=== PATIENT | female | born 1980 | race Caucasian/White ===

== ENCOUNTER 2020-02-27 02:37 | Emergency (ER) | payer SELFPAY ==
[2020-02-27 02:39] VITALS: BP 137/84; PULSE 130; RESP 18; TEMP 36.5; O2SAT 98; BMI 30.7
--- NOTE | 2020-02-27 02:44 | ED_ITS ---
HPI - Chest Pain General: Chief Complaint: Abdominal Pain Stated Complaint: chest pain Time Seen by Provider: 02/27/20 02:42 History of Present Illness: HPI narrative: 39-year-old female with a history of episodes of pancreatitis present with abdominal pain in a bandlike fashion around her upper abdomen for the past 3 days or so. She has vomited several times. No diarrhea. She has developed chest pain this morning, with some associated shortness of breath. No fever. No blood in the vomitus. He says that her last episode of pancreatitis was 4 years or so ago. She has no history of heart disease MD complaint: chest pain Pertinent past history: other Onset (ago): day(s) (3) Timing of current episode: episodic Prior episodes: Yes Onset: during rest Pain location: substernal and epigastric Pain radiation: abdomen Severity: moderate Quality: aching Relieving factors: nothing Associated symptoms: Reports abdominal pain, dyspnea, nausea and vomiting; Deny diaphoresis, fever(s) or palpitations Review of Systems Const: Denies: fever(s) or diaphoresis Eyes: Denies: change in vision ENMT: Denies: swelling of lips/tongue, post nasal drip or sinus pain Card: Reports: chest pain; Denies: palpitations, irregular heart rhythm or edema Resp: Reports: dyspnea; Denies: productive cough, non-productive cough or wheezing GI: Reports: abdominal pain, nausea and vomiting : Denies: dysuria or hematuria Musc: Reports: back pain; Denies: neck pain Skin/Breast: Denies: rash, pruritus or erythema Neuro: Denies: headache(s), dizziness or vertigo Psych: Denies: anxiety PFSH ED PFSH: Social History Smoking and tobacco status: current every day smoker Female Reproductive History: Date of last menstrual period: 02/25/20 Physical Exam Const: GENERAL APPEARANCE: well developed ORIENTATION/CONSCIOUSNESS: Yes oriented to person, Yes oriented to place and Yes oriented to time HENMT: COMMON NORMALS: normocephalic, external ears normal and Normal external nose present HEAD & SCALP: normocephalic FACE & SINUS: normal facial exam NOSE: Normal external nose present and No nasal discharge present EXTERNAL EAR: Yes external ears normal MOUTH: tongue normal Eye: COMMON NORMALS: Equal, round and reactive pupils present, EOMs intact bilaterally and conjunctivae normal EYELID: eyelids normal CONJUNCTIVA: Yes conjunctivae normal PUPIL: Yes Equal, round and reactive pupils present Neck/C-Spine: GENERAL: No tracheal deviation Chest: COMMONS NORMALS: normal inspection of the chest CHEST: No tenderness Resp: COMMON NORMALS: clear to auscultation bilaterally EFFORT & INSPECTION: No tachypneic, No respiratory distress, No retractions, No uses accessory muscles and No tracheal deviation AUSCULTATION: clear to auscultation bilaterally, no rhonchi, no wheezes and lung sounds not diminished Cardio: COMMON NORMALS: regular rate and regular rhythm RATE: regular rate RHYTHM: regular rhythm HEART SOUNDS: no murmurs PERIPHERAL PULSES: radial pulses present GI: INSPECTION: No abdominal distension AUSCULTATION: No Hyperactive bowel sounds present and No Hypoactive bowel sounds present PALPATION: Yes Tenderness to palpation present (GI) Details: LUQ, Yes Guarding due to palpation present (GI) and No Rigid due to palpation PERCUSSION: no dullness to percussion and no tympanic to percussion Neuro: SENSORIUM/ORIENTATION: Yes oriented to person, Yes oriented to place and Yes oriented to time Psych: COMMON NORMALS: mental status grossly normal Skin: COMMON NORMALS: no rashes or lesions noted GENERAL SKIN EXAM: no rashes or lesions noted Course Vital Signs: Vital signs: Vital Signs Temperature 97.7 F 02/27/20 02:39 Pulse Rate 130 H 02/27/20 02:39 Respiratory Rate 22 H 02/27/20 03:01 Blood Pressure 137/84 02/27/20 02:39 Pulse Oximetry 96 02/27/20 03:01 MDM - Chest Pain MDM Narrative: Medical decision making narrative: EKG shows a sinus rhythm. Troponin is negative. Chest x-ray is negative. White blood cell count is 15.2. She is tender in the epigastrium. Lipase is normal however. CT shows a normal-appearing pancreas. Bile ducts are normal. She does have an area of inflammation/ulceration of the distal stomach. She will be treated with PPI, and nausea control. Liquid diet, scheduled antiemetic for 24 hours. She knows to return for worsening symptoms. Lab Data: Labs: Lab Results 02/27/20 02/27/20 02/27/20 Range/Units 02:41 02:41 02:41 WBC 15.2 H (4.0-10.0) 10^3/ uL RBC 5.12 (4.1-5.3) 10^6/u L Hgb 15.6 H (11.5-15.3) g/dL Hct 45.1 (37.0-47.0) % MCV 88.1 (81-99) fL MCH 30.5 (28.0-34.0) pg MCHC 34.6 (30.0-36.0) g/dL RDW 12.4 (12.1-15.1) % Plt Count 278 (130-400) 10^3/c mm MPV 10.5 H (7.4-10.4) fL Neut % (Auto) 76.0 % Lymph % (Auto) 17.8 % [place] % (Auto) 5.3 % Eos % (Auto) 0.3 % Baso % (Auto) 0.2 % Neut # (Auto) 11.5 H (1.8-7.7) 10^3/u L Lymph # (Auto) 2.7 (0.8-4.8) 10^3/u L [place] # (Auto) 0.8 (0.2-0.9) 10^3/u L Eos # (Auto) 0.0 (0.0-0.8) 10^3/u L Baso # (Auto) 0.0 (0.0-0.1) 10^3/u L Nucleated RBC % (a uto) 0 % Nucleated RBCs # 0.0 /100WBC PT 12.10 (10.5-13.3) SECO NDS INR 0.87 (0.8-1.2) APTT 25.8 (23.9-36.7) SECO NDS D-Dimer <= 0.27 (0-0.59) ug/mIFE U Sodium 139 (136-145) mmol/L Potassium 3.5 (3.5-5.1) mmol/L Chloride 98 (98-107) mmol/L Carbon Dioxide 26 (22-29) mmol/L Anion Gap 18.5 (5-19) BUN 16 (6-20) mg/dL Creatinine 0.8 (0.5-0.9) mg/dL GFR Calculation 80.7 L (90-130) mL/min Glucose 139 H (65-115) mg/dL Calculated Osmolal ity 287 (285-295) mOsm/k g Calcium 9.8 (8.5-10.5) mg/dL Total Bilirubin 0.3 (0.15-1.2) mg/dL AST 21 (0-32) U/L ALT 22 (0-33) U/L Alkaline Phosphata se 69 (35-105) IU/L Creatine Kinase 44 (26-192) U/L Troponin T Baselin e (0-10) ng/L Total Protein 7.2 (6.6-8.7) g/dL Albumin 4.8 (3.5-5.2) g/dL Globulin 2.4 (1.3-4.6) g/dL Lipase (13-60) U/L HCG, Qual (Negative) Urine Color (Yellow) Urine Appearance (CLEAR) Urine pH (5-7) Ur Specific Gravit y (1.005-1.030) Urine Protein (Negative) Urine Glucose (UA) (Normal) Urine Ketones (Negative) Urine Blood (Negative) Urine Nitrate (Negative) Urine Bilirubin (NEGATIVE) Urine Urobilinogen (Negative) mg/dL Ur Leukocyte Oliva ase (Negative) Urine RBC (0-2) /hpf Urine WBC (0-5) /hpf Ur Squamous Epith Cells (0-5) Urine Bacteria (NONE) Urine Mucus 02/27/20 02/27/20 02/27/20 Range/Units 02:41 02:41 02:41 WBC (4.0-10.0) 10^3/ uL RBC (4.1-5.3) 10^6/u L Hgb (11.5-15.3) g/dL Hct (37.0-47.0) % MCV (81-99) fL MCH (28.0-34.0) pg MCHC (30.0-36.0) g/dL RDW (12.1-15.1) % Plt Count (130-400) 10^3/c mm MPV (7.4-10.4) fL Neut % (Auto) % Lymph % (Auto) % [place] % (Auto) % Eos % (Auto) % Baso % (Auto) % Neut # (Auto) (1.8-7.7) 10^3/u L Lymph # (Auto) (0.8-4.8) 10^3/u L [place] # (Auto) (0.2-0.9) 10^3/u L Eos # (Auto) (0.0-0.8) 10^3/u L Baso # (Auto) (0.0-0.1) 10^3/u L Nucleated RBC % (a uto) % Nucleated RBCs # /100WBC PT (10.5-13.3) SECO NDS INR (0.8-1.2) APTT (23.9-36.7) SECO NDS D-Dimer (0-0.59) ug/mIFE U Sodium (136-145) mmol/L Potassium (3.5-5.1) mmol/L Chloride (98-107) mmol/L Carbon Dioxide (22-29) mmol/L Anion Gap (5-19) BUN (6-20) mg/dL Creatinine (0.5-0.9) mg/dL GFR Calculation (90-130) mL/min Glucose (65-115) mg/dL Calculated Osmolal ity (285-295) mOsm/k g Calcium (8.5-10.5) mg/dL Total Bilirubin (0.15-1.2) mg/dL AST (0-32) U/L ALT (0-33) U/L Alkaline Phosphata se (35-105) IU/L Creatine Kinase (26-192) U/L Troponin T Baselin e 7 (0-10) ng/L Total Protein (6.6-8.7) g/dL Albumin (3.5-5.2) g/dL Globulin (1.3-4.6) g/dL Lipase 40 (13-60) U/L HCG, Qual Negative (Negative) Urine Color (Yellow) Urine Appearance (CLEAR) Urine pH (5-7) Ur Specific Gravit y (1.005-1.030) Urine Protein (Negative) Urine Glucose (UA) (Normal) Urine Ketones (Negative) Urine Blood (Negative) Urine Nitrate (Negative) Urine Bilirubin (NEGATIVE) Urine Urobilinogen (Negative) mg/dL Ur Leukocyte Oliva ase (Negative) Urine RBC (0-2) /hpf Urine WBC (0-5) /hpf Ur Squamous Epith Cells (0-5) Urine Bacteria (NONE) Urine Mucus 02/27/20 Range/Units 03:24 WBC (4.0-10.0) 10^3/ uL RBC (4.1-5.3) 10^6/u L Hgb (11.5-15.3) g/dL Hct (37.0-47.0) % MCV (81-99) fL MCH (28.0-34.0) pg MCHC (30.0-36.0) g/dL RDW (12.1-15.1) % Plt Count (130-400) 10^3/c mm MPV (7.4-10.4) fL Neut % (Auto) % Lymph % (Auto) % [place] % (Auto) % Eos % (Auto) % Baso % (Auto) % Neut # (Auto) (1.8-7.7) 10^3/u L Lymph # (Auto) (0.8-4.8) 10^3/u L [place] # (Auto) (0.2-0.9) 10^3/u L Eos # (Auto) (0.0-0.8) 10^3/u L Baso # (Auto) (0.0-0.1) 10^3/u L Nucleated RBC % (a uto) % Nucleated RBCs # /100WBC PT (10.5-13.3) SECO NDS INR (0.8-1.2) APTT (23.9-36.7) SECO NDS D-Dimer (0-0.59) ug/mIFE U Sodium (136-145) mmol/L Potassium (3.5-5.1) mmol/L Chloride (98-107) mmol/L Carbon Dioxide (22-29) mmol/L Anion Gap (5-19) BUN (6-20) mg/dL Creatinine (0.5-0.9) mg/dL GFR Calculation (90-130) mL/min Glucose (65-115) mg/dL Calculated Osmolal ity (285-295) mOsm/k g Calcium (8.5-10.5) mg/dL Total Bilirubin (0.15-1.2) mg/dL AST (0-32) U/L ALT (0-33) U/L Alkaline Phosphata se (35-105) IU/L Creatine Kinase (26-192) U/L Troponin T Baselin e (0-10) ng/L Total Protein (6.6-8.7) g/dL Albumin (3.5-5.2) g/dL Globulin (1.3-4.6) g/dL Lipase (13-60) U/L HCG, Qual (Negative) Urine Color Yellow (Yellow) Urine Appearance Clear (CLEAR) Urine pH 5 (5-7) Ur Specific Gravit y 1.025 (1.005-1.030) Urine Protein Neg (Negative) Urine Glucose (UA) Norm (Normal) Urine Ketones Negative (Negative) Urine Blood Trace H (Negative) Urine Nitrate Negative (Negative) Urine Bilirubin Neg (NEGATIVE) Urine Urobilinogen Norm (Negative) mg/dL Ur Leukocyte Oliva ase Negative (Negative) Urine RBC 0-4 H (0-2) /hpf Urine WBC 0-4 H (0-5) /hpf Ur Squamous Epith Cells 0-4 H (0-5) Urine Bacteria 1+ H (NONE) Urine Mucus 1+ Discharge Plan Discharge Patient Disposition: Home, Self-Care Clinical Impression: Gastritis Qualifiers: Gastritis type: unspecified gastritis Chronicity: acute Gastritis bleeding: without bleeding Qualified Code(s): K29.00 - Acute gastritis without bleeding Condition: Stable Prescriptions: [place] 5-325 mg tablet 1 tab PO Q6H PRN (Reason: pain) Qty: 10 RF: 0 Zofran 4 mg tablet 4 mg PO Q6H PRN (Reason: nausea and vomiting) Qty: 10 RF: 0 Prevacid 30 mg capsule,delayed release(DR/EC) 30 mg PO DAILY 28 Days Qty: 28 RF: 0 Discharge Orders: Discharge Order (Routine); Ordered 02/27/20 Ordered By: Alek Lomeli Discharge Diet: Advance as tolerated and Clear Liquid Discharge Activity: Increase activity as tolerated Patient Instructions: Gastritis (ED) Activity Restrictions/Additional Instructions: Return for fever greater than 100, worsening pain despite treatment, vomiting liquids or medications despite treatment, other concerning symptoms Coding Level of Care Code ED Inspector Firearms for Fabiana Fwd Exam Comprehensive
[2020-02-27 02:50] LABS: Basophils % 0.2 %; Eosinophils % 0.3 %; Hematocrit 45.1 % (37.0-47.0); Hemoglobin 15.6 g/dL (11.5-15.3); Lymphocytes # 2.7 10^3/uL (0.8-4.8); Lymphocytes % 17.8 %; Mean Corpuscular HGB Conc 34.6 g/dL (30.0-36.0); Mean Corpuscular Hemoglobin 30.5 pg (28.0-34.0); Mean Corpuscular Volume 88.1 fL (81-99); Mean Platelet Volume 10.5 fL (7.4-10.4); Monocytes # 0.8 10^3/uL (0.2-0.9); Monocytes % 5.3 %; Neutrophils # 11.5 10^3/uL (1.8-7.7); Nucleated Red Blood Cells % 0 %; Platelet Count 278 10^3/cmm (130-400); Red Blood Count 5.12 10^6/uL (4.1-5.3); Red Cell Distribution Width 12.4 % (12.1-15.1); White Blood Count 15.2 10^3/uL (4.0-10.0)
[2020-02-27] MEDS: sodium chloride 0.9% 1,000 ML 999 ML IV (02:50)
[2020-02-27] MEDS: ondansetron 2 mg/ML SDV 2 mL 4 MG IVP (02:52)
[2020-02-27 02:55] LABS: INR 0.87 (0.8-1.2); Partial Thromboplastin Time 25.8 SECONDS (23.9-36.7)
[2020-02-27 02:59] LABS: D Dimer <= 0.27 ug/mIFEU (0-0.59)
[2020-02-27 03:01] VITALS: RESP 22; O2SAT 96
[2020-02-27] MEDS: morphine 4 mg/mL SDV 1 mL IVP (03:01)
[2020-02-27 03:03] LABS: Alanine Aminotransferase 22 U/L (0-33); Albumin Level 4.8 g/dL (3.5-5.2); Alkaline Phosphatase 69 IU/L (35-105); Anion Gap 18.5 (5-19); Aspartate Amino Transferase 21 U/L (0-32); Blood Urea Nitrogen 16 mg/dL (6-20); Calcium 9.8 mg/dL (8.5-10.5); Carbon Dioxide 26 mmol/L (22-29); Chloride 98 mmol/L (98-107); Creatine Phosphokinase 44 U/L (26-192); Globulin 2.4 g/dL (1.3-4.6); Glomerular Filtration Rate 80.7 mL/min (90-130); Glucose 139 mg/dL (65-115); HCG, Serum Qual Negative (Negative); Osmolality Calculated 287 mOsm/kg (285-295); Potassium 3.5 mmol/L (3.5-5.1); Sodium 139 mmol/L (136-145); Total Bilirubin 0.3 mg/dL (0.15-1.2); Total Protein 7.2 g/dL (6.6-8.7)
[2020-02-27 03:04] LABS: Troponin(5th) Baseline 7 ng/L (0-10)
[2020-02-27 03:11] LABS: Lipase 40 U/L (13-60)
--- NOTE | 2020-02-27 03:14 | CTR_ITS ---
PROCEDURE INFORMATION: Exam: CT Abdomen And Pelvis With Contrast Exam date and time: 02/27/2020 3:24 AM Age: 39 years old Clinical indication: Nausea and vomiting; Abdominal pain; Generalized; Prior surgery; Surgery type: Gb; Additional info: Abd pain TECHNIQUE: Imaging protocol: Computed tomography of the abdomen and pelvis with intravenous contrast. Radiation optimization: All CT scans at this facility use at least one of these dose optimization techniques: automated exposure control; mA and/or kV adjustment per patient size (includes targeted exams where dose is matched to clinical indication); or iterative reconstruction. Contrast material: OMNI 300; Contrast volume: 95 ml; Contrast route: IV; COMPARISON: No relevant prior studies available. RADIATION DOSE METRICS: Total DLP: 902.54 mGy-cm FINDINGS: Lungs: The lung bases are clear. Liver: Unremarkable. Gallbladder and bile ducts: Prior cholecystectomy, no significant biliary tree dilation. Pancreas: Unremarkable. Spleen: Unremarkable. Adrenals: Unremarkable. Kidneys and ureters: Unremarkable. Stomach and bowel: Possibility of slightly thickened mucosa/wall in the distal antrum of the stomach. This is a nonspecific appearance, and could be transient on CT, but could also represent evidence for gastritis or peptic ulcer disease. Please correlate clinically. A few proximal small bowel loops are fluid filled and borderline prominent in size, but the overall appearance is not suggestive of significant small bowel obstruction at this time. This appearance could be secondary to some form of gastroenteritis. Please correlate clinically. There are no CT findings to strongly suggest diverticulitis. Appendix: The appendix is visualized and appears normal. Intraperitoneal space: No free air, ascites, or significant bowel distention. Vasculature: No evidence for abdominal aortic aneurysm. Lymph nodes: No retroperitoneal adenopathy. Bladder: The urinary bladder appears essentially unremarkable by CT, although evaluation is limited as the bladder is essentially empty. Reproductive: Both ovaries contain a 15-17 mm dominant follicle versus very small cyst. Significance uncertain/unlikely due to small size. No cul-de-sac fluid. Bones/joints: Moderate bulging disc at L4-L5. Soft tissues: No significant acute finding. CT/CT abdomen pelvis w con* [id number] IMPRESSION: 1. Normal appendix. 2. No free air or significant bowel distention. No evidence for bowel obstruction. 3. Possible thickened mucosa/wall in the distal stomach, see above discussion. 4. A few proximal small bowel loops are fluid filled and borderline prominent in size, see above discussion. This appearance could be secondary to some form of gastroenteritis. 5. Both ovaries contain a 15-17 mm dominant follicle versus very small cyst. Significance uncertain/unlikely due to small size. No cul-de-sac fluid. 6. Other findings discussed above. Radiation Dose CTDIVOL = (mGy): DLP = 902.54 (mGy-cm)
--- NOTE | 2020-02-27 03:16 | PC.NURSE ---
Pt states nausea has been resolved, pain 5/[address] notified
--- NOTE | 2020-02-27 03:19 | XR_ITS ---
WS: [id number] XR chest 1V portable [id number] REASON FOR EXAM: cp FINDINGS: The heart and mediastinal interfaces were normal. The lung dan are well aerated. No pneumonia, pleural effusion, pulmonary edema, are pneumothorax. The hilum and apices are normal. No osseous abnormalities. XR/XR chest 1V portable [id number] IMPRESSION: Negative chest for acute pathology.
[2020-02-27] MEDS: iohexol 300 mg/mL 100 mL Btl IV (03:25)
[2020-02-27 03:58] LABS: Add Urine Microscopic? YES; Bilirubin Urine Neg (NEGATIVE); Blood Urine Trace (Negative); Glucose Urine UA Norm (Normal); Ketones Urine Negative (Negative); Leukocyte Esterase Urine Negative (Negative); Nitrate Urine Negative (Negative); Protein Urine Neg (Negative); Specific Gravity, Urine 1.025 (1.005-1.030); Urine Appearance Clear (CLEAR); Urine Color Yellow (Yellow); Urobilinogen Urine Norm (Negative); pH Urine 5 (5-7)
[2020-02-27 04:00] LABS: Bacteria Urine 1+; Mucus Urine 1+; RBC Urine 0-4 /hpf (0-2); Squamous Epithelial Cell Urine 0-4 (0-5); WBC Urine 0-4 /hpf (0-5)
[2020-02-27 04:01] LABS: Add Urine Culture? No
[2020-02-27] MEDS: pantoprazole 40 mg SDV IVP (04:41)
[2020-02-27] MEDS: lidocaine 2% viscous 15 ML, aluminum-mag hydrox-simethicon 30 ML, sucralfate oral liq 1 GM PO (04:41)
--- NOTE | 2020-02-27 05:09 | PC.NURSE ---
i agree with this assessment
[2020-02-27 05:24] VITALS: BP 176/94; PULSE 84; RESP 18; O2SAT 100
[2020-02-27 05:30] LABS: Troponin 5 2HR 6.17 ng/L (0-10)
[2020-02-27 05:34] LABS: Troponin 5 2HR Delta -0.83 ABS# (0-10)
== END 2020-02-27 05:31 | disposition home or self-care (01) ==
PROVIDERS: Emergency Provider Emergency Medicine
DX: K29.00 Acute gastritis without bleeding (principal); F17.210 Nicotine dependence, cigarettes, uncomplicated
CPT/HCPCS: 12345; 71045; 74177; 80053; 81001; 82550; 83690; 84484; 84703; 85025; 85378; 85610; 85730; 96360; 96361; 96374; 96375; 99283; 99284; C9113; J2270; J2405; J7030; Q9967

== ENCOUNTER 2020-02-28 19:24 | Emergency (ER) | payer SELFPAY ==
[2020-02-28 19:26] VITALS: BP 181/113; PULSE 79; RESP 20; TEMP 36.6; O2SAT 96; BMI 30.7
--- NOTE | 2020-02-28 19:43 | ED_ITS ---
HPI - Abdominal Pain General: Chief Complaint: Abdominal Pain Stated Complaint: abd pain Time Seen by Provider: 02/28/20 19:30 Source: patient and old records reviewed Mode of arrival: ambulatory Limitations: no limitations History of Present Illness: HPI narrative: Kalyani is a nice 39-year-old female who comes in complaining of upper abdominal pain. She states this feels like her pancreatitis that she has had in the past. She is unaware of what caused her pancreatitis in the past and she has had a cholecystectomy. She denies drinking alcohol recurrently or to excess. She continues to vomit but denies any hemta-emesis or coffee-ground emesis. She states she is primarily vomiting up bile. She denies any diarrhea or constipation, she denies any urinary type symptoms, she has any fevers or chills, vaginal discharge or bleeding. Patient states that he was seen here a few days ago she is no better since then. The patient denies any lower abdominal pain. Associated Symptoms: Reports nausea and vomiting; Denies chills, coffee ground emesis, constipation, GI cramping, diarrhea, dysuria, fever(s), heartburn, hematochezia, hematuria, hematemesis, melena and syncope Related Data: Date of Last Menstrual Period: 02/26/20 Review of Systems Const: Denies: fever(s), chills, body aches, fatigue, malaise or diaphoresis Eyes: Denies: change in vision, blurry vision, blind spots or photophobia ENMT: Denies: throat pain, odynophagia, hoarseness, swelling of lips/tongue, ear or mastoid pain, ear discharge, change in hearing or nasal discharge Card: Denies: chest pain, palpitations, irregular heart rhythm, edema, lightheadedness, syncope, pre-syncope, dyspnea on exertion or orthopnea Resp: Denies: dyspnea, productive cough, non-productive cough, wheezing, hemoptysis or chest congestion GI: Reports: abdominal pain, nausea and vomiting; Denies: hematemesis, coffee ground emesis, heartburn, diarrhea, constipation, GI cramping, hematochezia or melena : Denies: flank pain, dysuria, urinary frequency, urinary urgency or hematuria Musc: Denies: neck pain, back pain, extremity pain, extremity swelling, joint pain, joint swelling, joint redness, joint warmth or joint stiffness Skin/Breast: Denies: rash, pruritus, erythema, skin tenderness or jaundice Neuro: Denies: headache(s), numbness in extremities, weakness in extremities, sensory changes, lack of coordination, difficulty walking, dizziness, vertigo, confusion or Slurred speech present Devin/Lymph: Denies: easy bruising, easy bleeding, petechiae, purpura or enlarged lymph nodes All/Imm: Denies: urticaria, throat swelling, tongue swelling, facial swelling or acute wheezing PFSH ED PFSH: Medical History Gastritis Pancreatitis Surgical History Previous section S/P cholecystectomy Social History Smoking and tobacco status: current every day smoker Female Reproductive History: Date of last menstrual period: 02/26/20 Physical Exam Const: COMMON NORMALS: no acute distress, patient oriented x3, no limitations, healthy appearing and well nourished GENERAL APPEARANCE: cooperative, well kempt and well developed HENMT: COMMON NORMALS: normocephalic, atraumatic, external ears normal, EAC's normal and Normal external nose present HEAD & SCALP: normal to inspection, normocephalic and atraumatic FACE & SINUS: normal facial exam and face symmetric NOSE: Normal external nose present and Normal nares present EXTERNAL EAR: Yes external ears normal EXTERNAL AUDITORY CANAL: EAC's normal MOUTH: Normal oral and palatal mucosa present, lip normal and tongue normal Eye: COMMON NORMALS: Equal, round and reactive pupils present and conjunctivae normal GENERAL EYE: appearance normal, both eyes and all related structures ALIGNMENT: Yes alignment normal PERIORBITAL: periorbital findings normal EYELID: eyelids normal CONJUNCTIVA: Yes conjunctivae normal SCLERA: sclerae normal PUPIL: Yes Equal, round and reactive pupils present Neck/C-Spine: COMMON NORMALS: full ROM, no lymphadenopathy, supple, no meningeal signs and no JVD GENERAL: Yes normal visual inspection and Yes trachea midline Chest: COMMONS NORMALS: normal inspection of the chest and normal palpation of entire chest wall Resp: COMMON NORMALS: normal respiratory effort, No retractions and No use of accessory muscles EFFORT & INSPECTION: Yes able to speak in complete sentences and Yes symmetric chest movement AUSCULTATION: no crackles, no rales, no rhonchi and no wheezes Cardio: COMMON NORMALS: no JVD, regular rate, regular rhythm, S1 normal heart sound present and S2 normal heart sound present RATE: regular rate RHYTHM: regular rhythm HEART SOUNDS: S1 normal heart sound present, S2 normal heart sound present, no click, no gallops, no murmurs, no rubs and abnormal split S2 GI: COMMON NORMALS: Soft to palpation and No hepatosplenomegaly present PALPATION: Yes Soft to palpation, Yes Tenderness to palpation present (GI) (Mild in the upper abdomen without rebound or guarding.), No Guarding due to palpation present (GI), No Rigid due to palpation, Yes No hepatosplenomegaly present, No Hernia present, No Palpable mass present and No Pulsatile mass present : COMMON NORMALS: Yes no CVA tenderness BLADDER/KIDNEY EXAM: Yes no CVA tenderness EXTERNAL FEMALE EXAM: No Hernia present Back/Pelvis: COMMON NORMALS: no CVA tenderness, thoracic and lumbar spine normal to inspection, no thoracic nor lumbar tenderness and thoraco-lumbar ROM normal Extremity: COMMON NORMALS: normal to inspection, full ROM, capillary refill normal, no joint enlargement, no clubbing, cyanosis or edema and no calf tenderness Neuro: COMMON NORMALS: patient oriented x3, CN's II-XII intact bilaterally, moves all extremities, no focal motor deficits and no sensory deficits noted MENINGEAL SIGNS: Yes no meningeal signs SPEECH: speech normal Psych: COMMON NORMALS: mental status grossly normal, Normal thought process present, cooperative, normal affect, speech normal and activity/motor behavior normal APPEARANCE: Yes well kempt SPEECH: Yes normal speech THOUGHT PROCESS: Normal thought process present Skin: COMMON NORMALS: no rashes or lesions noted, turgor normal, no jaundice, no petechiae and no mottling GENERAL SKIN EXAM: no rashes or lesions noted and turgor normal Course Vital Signs: Vital signs: Vital Signs Temperature 97.8 F 02/28/20 19:26 Pulse Rate 75 02/28/20 21:29 Respiratory Rate 14 02/28/20 21:29 Blood Pressure 121/77 02/28/20 21:29 Pulse Oximetry 99 02/28/20 21:29 MDM - Abdominal Pain MDM Narrative: Medical decision making narrative: The patient is feeling much better after pain medication and a GI cocktail. I have recommended to have a CT scan done to better assess for anything else that could be causing her pain specifically appendicitis, small bowel obstruction, or any other type of inflammatory or infectious bowel etiology. The patient understands what I recommended but she is refusing this test. She states she is feeling much better and would like to go home. She claims she is not on anything for acid in her stomach although Dr. Lomeli did prescribe Prevacid at her last discharge but she states she is not taking that. I will place her on Protonix as I believe it works somewhat better as she states that she will use this but she is still refusing a CT scan of the abdomen pelvis. She understands that a bowel obstruction or missed appendicitis can lead to worsening problems including surgeries, need for ileostomy, colostomy or even an the worse case scenario . She declines having this test done and she is adamant she wants to go home. This time the patient is drinking water and is laughing and joking and playing on her cell phone. I will not make her sign out AGAINST MEDICAL ADVICE but she does understand that she is leaving against my advice as I have her acute further studies. I do trust that she will return if she worsens at all. The patient has been warned but she is also been welcomed to return. Differential Diagnosis: Differential diagnosis abdominal pain: Likely abdominal pain, acute appendicitis, calculus of kidney, constipation, diverticulitis, endometriosis, gastroenteritis, pancreatitis and small bowel obstruction Medical Records: Attestation: I reviewed the patient's medical records. Medical records narrative: Previous ER visit reviewed. Lab Data: Attestation: I reviewed the patient's lab results. Labs: Lab Results 02/28/20 02/28/20 02/28/20 Range/Units 19:45 19:45 19:45 WBC 12.1 H (4.0-10.0) 10^3/ uL RBC 4.52 (4.1-5.3) 10^6/u L Hgb 13.7 (11.5-15.3) g/dL Hct 39.3 (37.0-47.0) % MCV 86.9 (81-99) fL MCH 30.3 (28.0-34.0) pg MCHC 34.9 (30.0-36.0) g/dL RDW 12.2 (12.1-15.1) % Plt Count 246 (130-400) 10^3/c mm MPV 10.4 (7.4-10.4) fL Neut % (Auto) 77.9 % Lymph % (Auto) 16.5 % [place] % (Auto) 4.9 % Eos % (Auto) 0.2 % Baso % (Auto) 0.2 % Neut # (Auto) 9.4 H (1.8-7.7) 10^3/u L Lymph # (Auto) 2.0 (0.8-4.8) 10^3/u L [place] # (Auto) 0.6 (0.2-0.9) 10^3/u L Eos # (Auto) 0.0 (0.0-0.8) 10^3/u L Baso # (Auto) 0.0 (0.0-0.1) 10^3/u L Nucleated RBC % (a uto) 0 % Nucleated RBCs # 0.0 /100WBC Sodium 139 (136-145) mmol/L Potassium 3.8 (3.5-5.1) mmol/L Chloride 101 (98-107) mmol/L Carbon Dioxide 26 (22-29) mmol/L Anion Gap 15.8 (5-19) BUN 10 (6-20) mg/dL Creatinine 0.6 (0.5-0.9) mg/dL GFR Calculation 112.5 (90-130) mL/min Glucose 110 (65-115) mg/dL Calculated Osmolal ity 285 (285-295) mOsm/k g Calcium 9.1 (8.5-10.5) mg/dL Total Bilirubin 0.3 (0.15-1.2) mg/dL AST 18 (0-32) U/L ALT 18 (0-33) U/L Alkaline Phosphata se 57 (35-105) IU/L Total Protein 6.6 (6.6-8.7) g/dL Albumin 4.3 (3.5-5.2) g/dL Globulin 2.3 (1.3-4.6) g/dL Triglycerides 96 (0-150) mg/dL Cholesterol 134 (0-200) mg/dL LDL Cholesterol, C alc 67 (50-129) mg/dL HDL Cholesterol 48 L (60-100) mg/dL LDL/HDL Ratio 1.40 (0.00-3.22) RATI O Cholesterol/HDL Ra tai 2.79 (0.0-4.40) mg/dL Lipase 85 H (13-60) U/L HCG, Qual Negative (Negative) Urine Color (Yellow) Urine Appearance (CLEAR) Urine pH (5-7) Ur Specific Gravit y (1.005-1.030) Urine Protein (Negative) Urine Glucose (UA) (Normal) Urine Ketones (Negative) Urine Blood (Negative) Urine Nitrate (Negative) Urine Bilirubin (NEGATIVE) Urine Urobilinogen (Negative) mg/dL Ur Leukocyte Oliva ase (Negative) Urine RBC (0-2) /hpf Urine WBC (0-5) /hpf Ur Squamous Epith Cells (0-5) Amorphous Sediment Urine Bacteria (NONE) Urine Mucus H. pylori IgG Anti body (Negative) 02/28/20 02/28/20 Range/Units 19:45 19:45 WBC (4.0-10.0) 10^3/ uL RBC (4.1-5.3) 10^6/u L Hgb (11.5-15.3) g/dL Hct (37.0-47.0) % MCV (81-99) fL MCH (28.0-34.0) pg MCHC (30.0-36.0) g/dL RDW (12.1-15.1) % Plt Count (130-400) 10^3/c mm MPV (7.4-10.4) fL Neut % (Auto) % Lymph % (Auto) % [place] % (Auto) % Eos % (Auto) % Baso % (Auto) % Neut # (Auto) (1.8-7.7) 10^3/u L Lymph # (Auto) (0.8-4.8) 10^3/u L [place] # (Auto) (0.2-0.9) 10^3/u L Eos # (Auto) (0.0-0.8) 10^3/u L Baso # (Auto) (0.0-0.1) 10^3/u L Nucleated RBC % (a uto) % Nucleated RBCs # /100WBC Sodium (136-145) mmol/L Potassium (3.5-5.1) mmol/L Chloride (98-107) mmol/L Carbon Dioxide (22-29) mmol/L Anion Gap (5-19) BUN (6-20) mg/dL Creatinine (0.5-0.9) mg/dL GFR Calculation (90-130) mL/min Glucose (65-115) mg/dL Calculated Osmolal ity (285-295) mOsm/k g Calcium (8.5-10.5) mg/dL Total Bilirubin (0.15-1.2) mg/dL AST (0-32) U/L ALT (0-33) U/L Alkaline Phosphata se (35-105) IU/L Total Protein (6.6-8.7) g/dL Albumin (3.5-5.2) g/dL Globulin (1.3-4.6) g/dL Triglycerides (0-150) mg/dL Cholesterol (0-200) mg/dL LDL Cholesterol, C alc (50-129) mg/dL HDL Cholesterol (60-100) mg/dL LDL/HDL Ratio (0.00-3.22) RATI O Cholesterol/HDL Ra tai (0.0-4.40) mg/dL Lipase (13-60) U/L HCG, Qual (Negative) Urine Color Straw (Yellow) Urine Appearance Cloudy (CLEAR) Urine pH 7 (5-7) Ur Specific Gravit y 1.010 (1.005-1.030) Urine Protein Neg (Negative) Urine Glucose (UA) Norm (Normal) Urine Ketones Negative (Negative) Urine Blood Neg (Negative) Urine Nitrate Negative (Negative) Urine Bilirubin Neg (NEGATIVE) Urine Urobilinogen Norm (Negative) mg/dL Ur Leukocyte Oliva ase Negative (Negative) Urine RBC 0-4 H (0-2) /hpf Urine WBC None (0-5) /hpf Ur Squamous Epith Cells 5-10 H (0-5) Amorphous Sediment 4+ Urine Bacteria 1+ H (NONE) Urine Mucus 1+ H. pylori IgG Anti body Negative (Negative) Discharge Plan Discharge Patient Disposition: Home, Self-Care Clinical Impression: Abdominal pain Qualifiers: Abdominal location: epigastric Qualified Code(s): R10.13 - Epigastric pain Condition: Stable Prescriptions: New Protonix 40 mg tablet,delayed release (DR/EC) 40 mg PO DAILY 28 Days RF: 0 No Action hydrocodone-acetaminophen [[place]] 5-325 mg tablet 1 tab PO Q6H PRN (Reason: pain) Qty: 10 RF: 0 ondansetron HCl [Zofran] 4 mg tablet 4 mg PO Q6H PRN (Reason: nausea and vomiting) Qty: 10 RF: 0 lansoprazole [Prevacid] 30 mg capsule,delayed release(DR/EC) 30 mg PO DAILY 28 Days Qty: 28 RF: 0 Discharge Orders: Discharge Order (Routine); Ordered 02/28/20 Ordered By: Ludmila Heart Referrals: Chris Mehta MD [Physician] - 1-3 days Discharge Diet: Advance as tolerated Discharge Activity: Increase activity as tolerated Patient Instructions: Abdominal Pain (ED) Activity Restrictions/Additional Instructions: Please return to the ER immediately for any of the signs or symptoms listed on your discharge instruction sheets, worsening/changing of your symptoms, you are not getting better as quickly as expected, or for ANY other cause or concerns. Take the Protonix that I have prescribed you and discard the Prevacid given to you by Dr. Lomeli. Do not take both of these medications together. If you develop chest pain, shortness of breath, fever, you continue to vomit, you develop blood in your stools or have any other concerns please return to the ER immediately for recheck. You have been offered further evaluation here to include a CT scan which you have declined because you have stated you are feeling better. Appendicitis and other serious even life-threatening causes of your pain could be present so if you change your mind, your symptoms worsen or you have any other problems please return to the ER immediately for recheck. Discharge Date/Time: 02/28/20 21:29 Coding Level of Care Code ED Binder Sorter for Fabiana Fwd Exam Comprehensive
[2020-02-28 19:58] LABS: HCG Qualitative Urine. Negative (Negative)
[2020-02-28 20:02] LABS: Basophils % 0.2 %; Eosinophils % 0.2 %; Hematocrit 39.3 % (37.0-47.0); Hemoglobin 13.7 g/dL (11.5-15.3); Lymphocytes % 16.5 %; Mean Corpuscular HGB Conc 34.9 g/dL (30.0-36.0); Mean Corpuscular Hemoglobin 30.3 pg (28.0-34.0); Mean Corpuscular Volume 86.9 fL (81-99); Mean Platelet Volume 10.4 fL (7.4-10.4); Monocytes # 0.6 10^3/uL (0.2-0.9); Monocytes % 4.9 %; Neutrophils # 9.4 10^3/uL (1.8-7.7); Neutrophils % 77.9 %; Nucleated Red Blood Cells % 0 %; Platelet Count 246 10^3/cmm (130-400); Red Blood Count 4.52 10^6/uL (4.1-5.3); Red Cell Distribution Width 12.2 % (12.1-15.1); White Blood Count 12.1 10^3/uL (4.0-10.0)
[2020-02-28 20:14] LABS: Alanine Aminotransferase 18 U/L (0-33); Albumin Level 4.3 g/dL (3.5-5.2); Alkaline Phosphatase 57 IU/L (35-105); Anion Gap 15.8 (5-19); Aspartate Amino Transferase 18 U/L (0-32); Blood Urea Nitrogen 10 mg/dL (6-20); Calcium 9.1 mg/dL (8.5-10.5); Carbon Dioxide 26 mmol/L (22-29); Chloride 101 mmol/L (98-107); Chol HDL Ratio 2.79 mg/dL (0.0-4.40); Cholesterol 134 mg/dL (0-200); Globulin 2.3 g/dL (1.3-4.6); Glomerular Filtration Rate 112.5 mL/min (90-130); Glucose 110 mg/dL (65-115); HDL Cholesterol 48 mg/dL (60-100); LDL Cholesterol Calculated 67 mg/dL (50-129); Lipase 85 U/L (13-60); Osmolality Calculated 285 mOsm/kg (285-295); Potassium 3.8 mmol/L (3.5-5.1); Sodium 139 mmol/L (136-145); Total Bilirubin 0.3 mg/dL (0.15-1.2); Total Protein 6.6 g/dL (6.6-8.7); Triglycerides 96 mg/dL (0-150)
[2020-02-28] MEDS: HYDROmorphone 1 mg/mL INJ 1 mL IVP (20:18)
[2020-02-28] MEDS: ondansetron 2 mg/ML SDV 2 mL 4 MG IVP (20:18)
[2020-02-28] MEDS: sodium chloride 0.9% 1,000 ML 999 ML IV (20:18)
[2020-02-28 20:27] LABS: H. Pylori IgG Antibody Negative (Negative)
[2020-02-28] MEDS: pantoprazole 40 mg SDV 80 MG IVP (20:28)
[2020-02-28] MEDS: lidocaine 2% viscous 15 ML, aluminum-mag hydrox-simethicon 30 ML, sucralfate oral liq 1 GM PO (20:57)
[2020-02-28 21:14] LABS: Add Urine Microscopic? YES; Bilirubin Urine Neg (NEGATIVE); Blood Urine Neg (Negative); Glucose Urine UA Norm (Normal); Ketones Urine Negative (Negative); Leukocyte Esterase Urine Negative (Negative); Nitrate Urine Negative (Negative); Protein Urine Neg (Negative); Urine Appearance Cloudy (CLEAR); Urine Color Straw (Yellow); Urobilinogen Urine Norm (Negative); pH Urine 7 (5-7)
[2020-02-28 21:19] LABS: Bacteria Urine 1+; RBC Urine 0-4 /hpf (0-2)
[2020-02-28 21:20] LABS: Add Urine Culture? No; Amorphous Sediment Urine 4+; Mucus Urine 1+
[2020-02-28 21:29] VITALS: BP 121/77; PULSE 75; RESP 14; O2SAT 99
== END 2020-02-28 21:29 | disposition home or self-care (01) ==
PROVIDERS: Emergency Medicine; Emergency Provider Emergency Medicine
DX: R10.13 Epigastric pain (principal); F17.210 Nicotine dependence, cigarettes, uncomplicated
CPT/HCPCS: 12345; 80053; 80061; 81001; 81025; 83690; 85025; 86677; 96361; 96374; 96375; 99282; 99283; C9113; J1170; J2405; J7030

== ENCOUNTER 2020-02-29 16:26 | Emergency (ER) | payer SELFPAY ==
[2020-02-29 16:33] VITALS: BP 185/104; PULSE 95; RESP 18; TEMP 37.1; O2SAT 98; BMI 30.7
--- NOTE | 2020-02-29 16:40 | CTR_ITS ---
PROCEDURE INFORMATION: Exam: CT Abdomen And Pelvis With Contrast Exam date and time: 02/29/2020 5:18 PM Age: 39 years old Clinical indication: Nausea and vomiting; Abdominal pain; Periumbilical; Prior surgery; Surgery type: Gb; Additional info: Abd pain TECHNIQUE: Imaging protocol: Computed tomography of the abdomen and pelvis with intravenous contrast. Radiation optimization: All CT scans at this facility use at least one of these dose optimization techniques: automated exposure control; mA and/or kV adjustment per patient size (includes targeted exams where dose is matched to clinical indication); or iterative reconstruction. Contrast material: OMNI 300; Contrast volume: 95 ml; Contrast route: INTRAVENOUS (IV); COMPARISON: CT abdomen pelvis w con* [id number] 02/27/2020 3:32 AM FINDINGS: Mediastinal space: Possible small 2.5 cm sliding hiatal hernia. Liver: Normal. No mass. Gallbladder and bile ducts: Prior cholecystectomy. Pancreas: Normal. No ductal dilation. Spleen: Normal. No splenomegaly. Adrenals: Normal. No mass. Kidneys and ureters: Normal. No hydronephrosis. Stomach and bowel: No obvious gastric wall thickening. Distal stomach/antrum is collapsed making evaluation difficult. Some of the small bowel loops display prominent mucosal folds which could indicate some sort of enteritis. Appendix: Normal small appendix. Intraperitoneal space: Unremarkable. No free air. No significant fluid collection. Vasculature: Unremarkable. No abdominal aortic aneurysm. Lymph nodes: Unremarkable. No enlarged lymph nodes. Bladder: Unremarkable as visualized. Reproductive: 1.9 cm right ovarian and 2 cm left ovarian dominant follicles or cysts, unchanged. Bones/joints: Unremarkable. No acute fracture. Soft tissues: Unremarkable. Other findings: The the Total DLP (mGy-cm): 842.13 CT/CT abdomen pelvis w con* [id number] IMPRESSION: 1.) Some of the small bowel loops display prominent mucosal folds which could indicate some sort of enteritis. 2.)1.9 cm right ovarian and 2 cm left ovarian dominant follicles or cysts, unchanged. 3.) Prior cholecystectomy. Radiation Dose CTDIVOL = (mGy): DLP = 842.13 (mGy-cm)
--- NOTE | 2020-02-29 16:43 | ED_ITS ---
HPI - Abdominal Pain General: Chief Complaint: Abdominal Pain Stated Complaint: UPPER QUAD ABD PAIN Time Seen by Provider: 02/29/20 16:35 Source: patient and EMS Mode of arrival: EMS Limitations: no limitations History of Present Illness: HPI narrative: 39-year-old female who states she has a history of chronic abdominal pain was seen here yesterday and the day before. Patient is CT 2 days ago was negative. She states her pain is worsened since then. She denies any vomiting. She has had her gallbladder out. MD elicited complaint: abdominal pain Onset (ago): day(s) Pain Consistency: intermittent Location: Epigastric Associated Symptoms: Denies chills, dysuria and fever(s) Related Data: Date of Last Menstrual Period: 02/26/20 Review of Systems Const: Denies: fever(s), chills, body aches or change in appetite Eyes: Denies: blurry vision or eye discomfort ENMT: Denies: throat pain or dental pain Card: Denies: chest pain Resp: Denies: dyspnea GI: Reports: abdominal pain : Denies: dysuria Musc: Denies: neck pain or back pain Skin/Breast: Denies: rash Neuro: Denies: headache(s) Psych: Denies: depression Devin/Lymph: Denies: easy bruising All/Imm: Denies: urticaria PFSH ED PFSH: Medical History (Updated 02/29/20 @ 18:17 by Dionisio Mock MD) Gastritis Pancreatitis Surgical History Previous section S/P cholecystectomy Social History Smoking and tobacco status: current every day smoker Female Reproductive History: Date of last menstrual period: 02/26/20 Physical Exam Const: COMMON NORMALS: no acute distress, patient oriented x3 and healthy appearing HENMT: COMMON NORMALS: normocephalic and atraumatic HEAD & SCALP: no rmocephalic and atraumatic Eye: COMMON NORMALS: Equal, round and reactive pupils present and EOMs intact bilaterally PUPIL: Yes Equal, round and reactive pupils present Neck/C-Spine: COMMON NORMALS: full ROM and supple Chest: COMMONS NORMALS: normal inspection of the chest and normal palpation of entire chest wall Resp: COMMON NORMALS: normal respiratory effort, No retractions, No use of accessory muscles and clear to auscultation bilaterally AUSCULTATION: clear to auscultation bilaterally Cardio: COMMON NORMALS: regular rate, regular rhythm and No murmurs present (Cardio) RATE: regular rate RHYTHM: regular rhythm GI: COMMON NORMALS: Normal to inspection, nondistended, normoactive bowel sounds present, Soft to palpation, non-tender and no masses PALPATION: Yes Soft to palpation Extremity: COMMON NORMALS: normal to inspection and full ROM Neuro: COMMON NORMALS: patient oriented x3, moves all extremities and no focal motor deficits Psych: COMMON NORMALS: mental status grossly normal, Normal thought process present and cooperative THOUGHT PROCESS: Normal thought process present Skin: COMMON NORMALS: no rashes or lesions noted and no wounds GENERAL SKIN EXAM: no rashes or lesions noted Course Vital Signs: Vital signs: Vital Signs Temperature 98.7 F 02/29/20 16:33 Pulse Rate 81 02/29/20 18:06 Respiratory Rate 14 02/29/20 18:06 Blood Pressure 206/121 02/29/20 18:06 Pulse Oximetry 95 02/29/20 18:06 MDM - Abdominal Pain MDM Narrative: Medical decision making narrative: Patient presents here with abdominal pain that is chronic in nature. Patient CT scan here is negative. Patient is stable for discharge and is to follow-up with primary care doctor in 3 to 5 days return if worsening. Lab Data: Labs: Lab Results 02/29/20 02/29/20 Range/Units 16:48 16:48 WBC 11.5 H (4.0-10.0) 10^3/ uL RBC 4.40 (4.1-5.3) 10^6/u L Hgb 13.0 (11.5-15.3) g/dL Hct 38.5 (37.0-47.0) % MCV 87.5 (81-99) fL MCH 29.5 (28.0-34.0) pg MCHC 33.8 (30.0-36.0) g/dL RDW 12.3 (12.1-15.1) % Plt Count 270 (130-400) 10^3/c mm MPV 10.9 H (7.4-10.4) fL Neut % (Auto) 79.5 % Lymph % (Auto) 15.0 % [place] % (Auto) 4.5 % Eos % (Auto) 0.3 % Baso % (Auto) 0.2 % Neut # (Auto) 9.1 H (1.8-7.7) 10^3/u L Lymph # (Auto) 1.7 (0.8-4.8) 10^3/u L [place] # (Auto) 0.5 (0.2-0.9) 10^3/u L Eos # (Auto) 0.0 (0.0-0.8) 10^3/u L Baso # (Auto) 0.0 (0.0-0.1) 10^3/u L Nucleated RBC % (a uto) 0 % Nucleated RBCs # 0.0 /100WBC Sodium 140 (136-145) mmol/L Potassium 3.7 (3.5-5.1) mmol/L Chloride 103 (98-107) mmol/L Carbon Dioxide 26 (22-29) mmol/L Anion Gap 14.7 (5-19) BUN 7 (6-20) mg/dL Creatinine 0.7 (0.5-0.9) mg/dL GFR Calculation 94.2 (90-130) mL/min Glucose 121 H (65-115) mg/dL Calculated Osmolal ity 287 (285-295) mOsm/k g Calcium 8.8 (8.5-10.5) mg/dL Total Bilirubin 0.2 (0.15-1.2) mg/dL AST 20 (0-32) U/L ALT 18 (0-33) U/L Alkaline Phosphata se 55 (35-105) IU/L Total Protein 6.4 L (6.6-8.7) g/dL Albumin 4.1 (3.5-5.2) g/dL Globulin 2.3 (1.3-4.6) g/dL Lipase 21 (13-60) U/L Imaging Data ^: CT Abd/Pel: Radiologist's impression: [address] [address] [address] Scan Report Signed Patient: Kalyani Escobedo Unit #: [id number] : 1980 Age/Sex: 39 / F ADM Date: 02/29/20 Loc: ER Room/Bed: Attending Dr: Ordering Provider/Ordering MD: Dionisio Mock MD Date of Service: 02/29/20 Procedure(s): CT abdomen pelvis w con* [id number] Accession Number(s): [id number] Report Number: [id number] PROCEDURE INFORMATION: Exam: CT Abdomen And Pelvis With Contrast Exam date and time: 02/29/2020 5:18 PM Age: 39 years old Clinical indication: Nausea and vomiting; Abdominal pain; Periumbilical; Prior surgery; Surgery type: Gb; Additional info: Abd pain TECHNIQUE: Imaging protocol: Computed tomography of the abdomen and pelvis with intravenous contrast. Radiation optimization: All CT scans at this facility use at least one of these dose optimization techniques: automated exposure control; mA and/or kV adjustment per patient size (includes targeted exams where dose is matched to clinical indication); or iterative reconstruction. Contrast material: OMNI 300; Contrast volume: 95 ml; Contrast route: INTRAVENOUS (IV); COMPARISON: CT abdomen pelvis w con* [id number] 02/27/2020 3:32 AM FINDINGS: Mediastinal space: Possible small 2.5 cm sliding hiatal hernia. Liver: Normal. No mass. Gallbladder and bile ducts: Prior cholecystectomy. Pancreas: Normal. No ductal dilation. Spleen: Normal. No splenomegaly. Adrenals: Normal. No mass. Kidneys and ureters: Normal. No hydronephrosis. Stomach and bowel: No obvious gastric wall thickening. Distal stomach/antrum is collapsed making evaluation difficult. Some of the small bowel loops display prominent mucosal folds which could indicate some sort of enteritis. Appendix: Normal small appendix. Intraperitoneal space: Unremarkable. No free air. No significant fluid collection. Vasculature: Unremarkable. No abdominal aortic aneurysm. Lymph nodes: Unremarkable. No enlarged lymph nodes. Bladder: Unremarkable as visualized. Reproductive: 1.9 cm right ovarian and 2 cm left ovarian dominant follicles or cysts, unchanged. Bones/joints: Unremarkable. No acute fracture. Soft tissues: Unremarkable. Other findings: The the Total DLP (mGy-cm): 842.13 CT/CT abdomen pelvis w con* [id number] IMPRESSION: 1.) Some of the small bowel loops display prominent mucosal folds which could indicate some sort of enteritis. 2.)1.9 cm right ovarian and 2 cm left ovarian dominant follicles or cysts, unchanged. 3.) Prior cholecystectomy. Discharge Plan Discharge Patient Disposition: Home, Self-Care Clinical Impression: Abdominal pain Qualifiers: Abdominal location: generalized Qualified Code(s): R10.84 - Generalized abdominal pain Condition: Stable Prescriptions: No Action hydrocodone-acetaminophen [[place]] 5-325 mg tablet 1 tab PO Q6H PRN (Reason: pain) Qty: 10 RF: 0 ondansetron HCl [Zofran] 4 mg tablet 4 mg PO Q6H PRN (Reason: nausea and vomiting) Qty: 10 RF: 0 lansoprazole [Prevacid] 30 mg capsule,delayed release(DR/EC) 30 mg PO DAILY 28 Days Qty: 28 RF: 0 pantoprazole [Protonix] 40 mg tablet,delayed release (DR/EC) 40 mg PO DAILY 28 Days RF: 0 Discharge Orders: Discharge Order (Routine); Ordered 02/29/20 Ordered By: Dionisio Mock Discharge Diet: Advance as tolerated Discharge Activity: Resume usual activity Patient Instructions: Abdominal Pain (ED) Coding Level of Care Code ED 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
[2020-02-29] MEDS: metoclopramide 5 mg/mL SDV 2 mL 10 MG IVP (17:05)
[2020-02-29] MEDS: diphenhydrAMINE 50 mg/mL SDV 1mL IVP (17:06)
[2020-02-29] MEDS: sodium chloride 0.9% 1,000 ML 999 ML IV (17:06)
[2020-02-29 17:09] LABS: Alanine Aminotransferase 18 U/L (0-33); Albumin Level 4.1 g/dL (3.5-5.2); Alkaline Phosphatase 55 IU/L (35-105); Anion Gap 14.7 (5-19); Aspartate Amino Transferase 20 U/L (0-32); Blood Urea Nitrogen 7 mg/dL (6-20); Calcium 8.8 mg/dL (8.5-10.5); Carbon Dioxide 26 mmol/L (22-29); Chloride 103 mmol/L (98-107); Globulin 2.3 g/dL (1.3-4.6); Glomerular Filtration Rate 94.2 mL/min (90-130); Glucose 121 mg/dL (65-115); Lipase 21 U/L (13-60); Osmolality Calculated 287 mOsm/kg (285-295); Potassium 3.7 mmol/L (3.5-5.1); Sodium 140 mmol/L (136-145); Total Bilirubin 0.2 mg/dL (0.15-1.2); Total Protein 6.4 g/dL (6.6-8.7)
[2020-02-29] MEDS: lidocaine 2% viscous 15 ML, aluminum-mag hydrox-simethicon 30 ML, sucralfate oral liq 1 GM PO (17:09)
[2020-02-29] MEDS: iohexol 300 mg/mL 100 mL Btl IV (17:30)
[2020-02-29 17:39] LABS: Basophils % 0.2 %; Eosinophils % 0.3 %; Hematocrit 38.5 % (37.0-47.0); Lymphocytes # 1.7 10^3/uL (0.8-4.8); Mean Corpuscular HGB Conc 33.8 g/dL (30.0-36.0); Mean Corpuscular Hemoglobin 29.5 pg (28.0-34.0); Mean Corpuscular Volume 87.5 fL (81-99); Mean Platelet Volume 10.9 fL (7.4-10.4); Monocytes # 0.5 10^3/uL (0.2-0.9); Monocytes % 4.5 %; Neutrophils # 9.1 10^3/uL (1.8-7.7); Neutrophils % 79.5 %; Nucleated Red Blood Cells % 0 %; Platelet Count 270 10^3/cmm (130-400); Red Cell Distribution Width 12.3 % (12.1-15.1); White Blood Count 11.5 10^3/uL (4.0-10.0)
[2020-02-29 18:06] VITALS: BP 206/121; PULSE 81; RESP 14; O2SAT 95
== END 2020-02-29 18:56 | disposition home or self-care (01) ==
PROVIDERS: Emergency Provider Emergency Medicine
DX: R10.84 Generalized abdominal pain (principal); F17.210 Nicotine dependence, cigarettes, uncomplicated
CPT/HCPCS: 12345; 36415; 74177; 80053; 83690; 85025; 96361; 96374; 96375; 99282; 99283; J1200; J2765; J7030; Q9967